=== PATIENT | female | born 1965 | race Caucasian/White ===

== ENCOUNTER → 2022-11-24 14:37 | Outpatient (BNVA) | payer MEDICARE, SELFPAY | PROVIDERS: PCP Family Medicine; Referring Provider Family Medicine; Visit Provider Psychiatry & Neurology Neurology | DX: R56.9 Unspecified convulsions (principal); F32.A Depression, unspecified; F41.9 Anxiety disorder, unspecified; Z79.899 Other long term (current) drug therapy; R25.1 Tremor, unspecified; Z82.49 Family history of ischemic heart disease and other diseases of the circulatory system; R53.1 Weakness | CPT/HCPCS: 99204 ==

== ENCOUNTER → 2022-12-01 12:53 | Outpatient (BNVA) | payer MEDICARE, SELFPAY | PROVIDERS: PCP Family Medicine; Visit Provider Psychiatry & Neurology Neurology | DX: R56.9 Unspecified convulsions (principal) | CPT/HCPCS: 95812; 95813 ==

== ENCOUNTER → 2022-12-16 13:04 | Outpatient (BNVA) | payer MEDICARE, SELFPAY | PROVIDERS: PCP Family Medicine; Visit Provider Psychiatry & Neurology Neurology | DX: R56.9 Unspecified convulsions (principal); R55 Syncope and collapse | CPT/HCPCS: 99213 ==

== ENCOUNTER → 2023-02-22 12:24 | Outpatient (BNVA) | payer MEDICARE, SELFPAY | PROVIDERS: PCP Family Medicine; Visit Provider Psychiatry & Neurology Neurology | DX: F44.5 Conversion disorder with seizures or convulsions (principal); Z82.49 Family history of ischemic heart disease and other diseases of the circulatory system | CPT/HCPCS: 99212 ==